=== PATIENT | female | born 1945 | race Caucasian/White ===

== ENCOUNTER 2016-12-02 17:47 | Emergency (ER) | payer OTHER, BC ==
[2016-12-02 17:52] VITALS: BP 159/100; PULSE 82; TEMP 98.3; BMI 26.2
[2016-12-02] MEDS ORDERED: IBUPROFEN 400 MG TABLET (FP) PO ONE ×2 (18:37→18:44)
[2016-12-02] MEDS ORDERED: DIPHTH,PERTUSS(ACELL),TET 0.5 ML DISP.SYRIN IM ONE (18:37)
[2016-12-02] MEDS ORDERED: SILVER SULFADIAZINE 1% TOP CREAM 50 GM JAR TP ONE ×2 (18:39→18:44)
[2016-12-02] MEDS ORDERED: BACITRACIN 15 GM TUBE TOPICAL OINTMENT ONE (18:44)
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
[2016-12-02] MEDS ORDERED: SILVER SULFADIAZINE 1% TOP CREAM 50 GM JAR TP SCH (22:00)
== END 2016-12-02 19:41 | disposition home or self-care (01) ==
LOC: JERFT 17:47
PROC: 2W24X4Z Dressing of Chest Wall using Bandage (ICD-10-PCS; principal; 2016-12-02)
PROC: 2W2EX4Z Dressing of Right Hand using Bandage (ICD-10-PCS; 2016-12-02)
PROC: 3E0234Z Introduction of Serum, Toxoid and Vaccine into Muscle, Percutaneous Approach (ICD-10-PCS; 2016-12-02)
DX: T23.251A Burn of second degree of right palm, initial encounter (principal); T22.111A Burn of first degree of right forearm, initial encounter; T31.0 Burns involving less than 10% of body surface; X10.2XXA Contact with fats and cooking oils, initial encounter; Y93.G3 Activity, cooking and baking; Y92.030 Kitchen in apartment as the place of occurrence of the external cause; Y99.8 Other external cause status; I10 Essential (primary) hypertension; E11.9 Type 2 diabetes mellitus without complications; Z79.84 Long term (current) use of oral hypoglycemic drugs
CPT/HCPCS: 16025; 90471; 90715; 99281-25